=== PATIENT | female | born 2000 | race African-American/Black ===

== ENCOUNTER 2025-02-03 22:16 | Emergency (ER) | payer OTHER, SELFPAY ==
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
[2025-02-03 22:17] VITALS: BP 136/84; PULSE 78; RESP 16; TEMP 37; O2SAT 99
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
[2025-02-03] MEDS: CYCLOBENZAPRINE HCL 10 MG TABLET PO (23:09)
[2025-02-03] MEDS: ACETAMINOPHEN 500 MG TABLET 1000 MG PO (23:09)
--- OUTSIDE RECORDS SUMMARY | 2025-02-03 23:47 | XMS_ITS | Encounter Summary ---
Author Organization [facility] Address [address] [place] [id number] Care Team Providers Care Business Project Analyst Name Role Phone Krzysztof Merchant MD, [place] Primary Care Provider [phone] Encounter Details Date Type Department Care Team (Late st Contact Info) Description 09/19/2024 Orders Only [facility] - [address] [place] [address] [place] [id number] Tania Del Rosario APN [address] [place] [id number] BV (bacterial vaginosis) (Primary Dx) Social History Tobacco Use Types Packs/Day Years Used Date Smoking Tobacco: Never Smokeless Tobacco: Never Alcohol Use Standard Drinks/Week Comments Yes 0 (1 standard drink = 0.6 oz pur e alcohol) social AUDIT-C Answer Date Recorded Frequency of Alcohol Consumption Never 08/02/2019 Average Number of Drinks Not on file 019 Frequency of Binge Drinking Not on file 07/16 PHQ-2 Answer Date Recorded PHQ-2 SCORE 0 04/18/2024 Sex and Gender Information Value Date Recorded Sex Assigned at Not on file Gender Identity Female 06/10/2022 10:59 PM CDT Sexual Orientation Not on file documented as of this encounter Functional Status Functional Status Response Date of Assess ment Hearing Problems? No 09/18/2024 Vision Problems? No 09/18/2024 Difficulty walking? No 09/18/2024 Difficulty dressing or bathing? No 09/18/2024 Problems with daily activities? No 09/18/2024 Cognitive Status Response Date of Assessm ent Memory Problems? No 09/18/2024 documented as of this encounter Plan of Treatment Not on file documented as of this encounter Visit Diagnoses Diagnosis BV (bacterial vaginosis)- Primary Vaginitis and vulvovaginitis, unspecified documented in this encounter Additional Health Concerns Assessment Noted Time A fall risk assessment has been complete d for the patient 04/10/2019 2:00 PM CDT documented as of this encounter Care Teams Business Project Analyst Relationship Specialty Start Date End Date Rosalva Giron MD [address] [place] [address] PCP - General Internal Medicine 03/11/21 documented as of this encounter
--- OUTSIDE RECORDS SUMMARY | 2025-02-03 23:47 | XMS_ITS | Clinical Summary ---
Author Organization [employer] (Prior to 08/15/22) Address [address] [place] [address] Care Team Providers Care Postdoctoral Fellow Name Role Phone Unavailable Primary Care Provider Unavailabl e Social History Tobacco Use Types Packs/Day Years Used Date Never Assessed Sex Assigned at Date Recorded Not on file Plan of Treatment Health Maintenance Due Date Last Done Comments Annual Wellness Visit 2002 COVID-19 Vaccine (#1) 06/27/2003 Cervical Cancer Screening 2023 Influenza Vaccine 07/16/2024
--- OUTSIDE RECORDS SUMMARY | 2025-02-03 23:47 | XMS_ITS | Encounter Summary ---
Author Organization [facility] Address [address] [place] [address] Care Team Providers Care Regulatory Agency Director Name Role Phone Krzysztof Merchant MD, [place] Primary Care Provider [phone] Encounter Details Date Type Department Care Team (Late st Contact Info) Description 08/20/2023 Orders Only Family Medicine - Jessica Fernando, Britney Rodriguez [address] [place] [address] Jackie Hoawrd CMA Social History Tobacco Use Types Packs/Day Years [...] PHQ-2 Answer Date Recorded PHQ-2 SCORE 0 03/22/2023 Sex and Gender Information Value Date Recorded Sex Assigned at Not on file Gender Identity Female 06/10/2022 10:59 PM CDT Sexual Orientation Not on file documented as of this encounter Plan of Treatment Not on file documented as of this encounter Visit Diagnoses Not on filedocumented in this encounter Additional Health Concerns Assessment Noted Time A fall risk assessment has been complete d for the patient 04/10/2019 2:00 PM CDT documented as of this encounter Care Teams Regulatory Agency Director Relationship Specialty Start Date End Date Rosalva Giron MD [address] [place] [address] PCP - General Internal Medicine 03/11/21 documented as of this encounter
--- OUTSIDE RECORDS SUMMARY | 2025-02-03 23:47 | XMS_ITS | Clinical Summary ---
Author Organization [facility] Address [address] [place] [address] Care Team Providers Care Fuel Agent Name Role Phone Krzysztof Merchant MD, [place] Primary Care Provider [phone] Allergies No known active allergies Medications * This document contains information received from the source organization and may not represent a complete record from that organization. FLUoxetine HCl 20 MG Oral CapIndications: Depression Take 3 capsules (60 mg total) by mouth nightly. 30 capsule 04/20/2019 Active lamoTRIgine 25 MG Oral TabIndications: Depression Take 2 tablets (50 mg total) by mouth nightly. 30 tablet 04/28/2019 Active Prazosin HCl 1 MG Oral Cap Take 1 mg by mouth daily. 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 Saez at [facility] Immunizations Name Administration Dates Next Due Covid-19 Vaccine Moderna 100 mcg/0.5 ml 03/01/20 21 FLUZONE 6 months and older PFS 0.5 ml (48953) Meningococcal-Menactra 04/24/2019 TDAP 11/20/2016 Family History Medical History Relation Comments No Known Problems Father Cancer Maternal Grandmother Diabetes Maternal Grandmother No Known Problems Mother Hypertension Paternal Grandfather Stroke Paternal Grandfather Hypertension Paternal Grandmother Thyroid disease Paternal Grandmother Relation Status Comments Father Alive Maternal Grandmother Alive Mother Alive Paternal Grandfather Paternal Grandmother Social History Tobacco Use Types Packs/Day Years [...] PHQ-2 Answer Date Recorded PHQ-2 SCORE 0 06/26/2021 Comments No Sex and Gender Information Value Date Recorded Sex Assigned at Not on file 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 Gender Identity Not on file Sexual Orientation Not on file Last Filed Vital Signs Vital Sign Reading Time Taken Comments Blood Pressure 118/74 06/30/2021 4:40 PM CDT Pulse 82 06/26/2021 11:20 AM CDT Temperature 36.7 C (98 F) 03/11/2021 3:47 PM CDT Respiratory Rate 18 06/26/2021 11:2 0 AM CDT Oxygen Saturation 97% 03/11/2021 3:47 PM CDT Inhaled Oxygen Concentration - - Weight 110.1 kg (242 lb 12.8 oz) 2020 11:20 AM CDT Height 172.7 cm (5' 8 ) 06/26/2021 11:2 0 AM CDT Body Mass Index 36.92 06/26/2021 11:20 AM CDT Plan of Treatment Health Maintenance Due Date Last Done Comments Annual Physical 2002 Insurance [facility] P[facility] PPO BS PPO Advance Directives * Full Code (Latest Code Status on File) Date Activated Date Inactivated Comments 04/04/2019 4:26 AM Care Teams Fuel Agent Relationship Specialty Start Date End Date Rosalva Giron MD [address] [place] [address] PCP - General Internal Medicine 03/11/21
--- OUTSIDE RECORDS SUMMARY | 2025-02-03 23:47 | XMS_ITS | Referral Summary ---
Author Organization [facility] Address [address] [place] [address] Care Team Providers Care Paper Mill Superintendent Name Role Phone Krzysztof Merchant MD, [place] Primary Care Provider [phone] Allergies No known active allergies Medications * [...] features Overview (03/11/2021): Psychiatrist= Dr. Saez at 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 Gender Identity Not on file Sexual Orientation [...] 06/26/2021 11:20 AM CDT Plan of Treatment Not on file Insurance [facility] PPO [facility] PPO Member Subscriber Plan / Payer (Ef fective 2016-Present) Name:BIA MEEHAN Relation to Subscriber:Child Name:FRANKO MELCHOR Date of :1976 (Home) Address: [address] [place] [address] Payer ID:[id number] Type:PPO Address: [place] [id number] PPO Advance Directives * Full Code (Latest Code Status on File) Date Activated Date Inactivated Comments 04/04/2019 4:26 AM Care Teams Paper Mill Superintendent Relationship Specialty Start Date End Date Rosalva Giron MD [address] [place] [address] PCP - General Internal Medicine 03/11/21
--- OUTSIDE RECORDS SUMMARY | 2025-02-03 23:47 | XMS_ITS | Clinical Summary ---
Author Organization [facility] Address [address] [place] [address] Care Team Providers Care Government Relations Director Name Role Phone None, Provider MD Primary Care Provider Unavaila ble Allergies No known active allergies Medications ondansetron (ZOFRAN-ODT) 4 MG disintegrating tablet Take 1 tablet (4 mg total) by mouth every 8 (eight) hours as needed for Nausea. 20 tablet Active Social History Tobacco Use Types Packs/Day Years Used Date Smoking Tobacco: Never Smokeless Tobacco: Never Tobacco Cessation:Counseling Given: Not Answered Alcohol Use Standard Drinks/Week Comments Yes 0 (1 standard drink = 0.6 oz pur e alcohol) Comments No Sex and Gender Information Value Date Recorded Sex Assigned at Not on file Legal Sex Female 2:10 AM SUCCESSFACTORS CONSULTANT Gender Identity Not on file Sexual Orientation Not on file Last Filed Vital Signs Vital Sign Reading Time Taken Comments Blood Pressure 129/87 01/11/2024 5:12 AM SUCCESSFACTORS CONSULTANT Pulse 94 01/11/2024 5:12 AM SUCCESSFACTORS CONSULTANT Temperature 36.8 C (98.3 F) 01/11/2024 5:12 AM SUCCESSFACTORS CONSULTANT Respiratory Rate 18 01/11/2024 5:12 AM SUCCESSFACTORS CONSULTANT Oxygen Saturation 100% 01/11/2024 5:12 AM SUCCESSFACTORS CONSULTANT Inhaled Oxygen Concentration - - Weight 97.5 kg (215 lb) 01/11/2024 2:16 AM SUCCESSFACTORS CONSULTANT Height 172.7 cm (5' 8 ) 01/11/2024 2:16 AM SUCCESSFACTORS CONSULTANT Body Mass Index 32.69 01/11/2024 2:16 AM SUCCESSFACTORS CONSULTANT Plan of Treatment Health Maintenance Due Date Last Done Comments Cervical Cancer Screening Mumtaz azevedo Smear (Age 21 to 29) Every 3 Years 2002 Cervical Cancer Screening 2002 Annual Physical 2005 HPV Vaccines (1 - 3-dose series) 2017 Meningococcal B Vaccine (1 o f 2 - Standard) 2018 Hepatitis C 2020 Hepatitis B Vaccines (1 of 3 - 19+ 3-dose series) 2021 COVID-19 Vaccine (4 - 2023-2 5 season) 2024 04/20/2022, 03/27/2021, 03/01/2021 Influenza Adult (#1) 2024 10/03/2018 DTaP, Tdap and Td Vaccines ( 2 - Td or Tdap) 11/20/2026 11/20/2016 Meningococcal Vaccine Completed 04/24/2019 Pneumococcal Vaccine: Pediatrics (0 to 5 Years) and At-Risk Patients (6 to 64 Years) Aged Out No longer eligible b ased on patient's age to complete this topic RSV Immunizations Under 20 Months Aged Out No longer eligible b ased on patient's age to complete this topic Insurance Care Teams Government Relations Director Relationship Specialty Start Date End Date None, Provider, MD PCP - General UNKNOWN PHYSICIAN SPECIALTY 01/11/24
--- OUTSIDE RECORDS SUMMARY | 2025-02-03 23:47 | XMS_ITS | Encounter Summary ---
Author Organization [facility] Address [address] [place] [address] Care Team Providers Care First Coat Sander Name Role Phone Krzysztof Merchant MD, [place] Primary Care Provider [phone] Encounter Details Date Type Department Care Team (Late st Contact Info) Description 03/20/2024 Orders Only [facility] [employer] - Alfie Toro [place] [address] [place] [address] Neisha Williamson PA-C Yeast vaginitis (Primary Dx) Social History Tobacco Use Types [...] as of this encounter Visit Diagnoses Diagnosis Yeast vaginitis- Primary Candidiasis of vulva and vagina documented in this encounter Additional Health Concerns Assessment Noted Time A fall risk assessment has been complete d for the patient 04/10/2019 2:00 PM CDT documented as of this encounter Care Teams First Coat Sander Relationship Specialty Start Date End Date Rosalva Giron MD [address] [place] [address] PCP - General Internal Medicine 03/11/21 documented as of this encounter
--- OUTSIDE RECORDS SUMMARY | 2025-02-03 23:47 | XMS_ITS | Clinical Summary ---
Author Organization [facility] Address [address] [place] [address] Care Team Providers Care Travel Director Name Role Phone Krzysztof Merchant MD, Rosalva Primary Care Provider [phone] Allergies No known active allergies Medications Medication Sig Dispensed Refills Start Date End Date Status Phentermine HCl 37.5 MG Oral CapIndications:Clas s 3 obesity (HCC) Take 1 capsule (37.5 mg total) by mouth every morning. 30 capsule 2 11/22/2024 Active Drospirenone-Ethiny l Estradiol 3-0.02 MG Oral Tab Take 1 tablet by mouth daily. 84 tablet 3 11/24/2024 02/17/2026 Active Active Problems Problem Noted Date Diagnosed Date Major depressive disorder 04/04/2019 Obesity 04/04/2019 Attention deficit hyperactiv ity disorder (ADHD), predominantly inattentive type 12/26/2018 PTSD (post-traumatic stress disorder) 12/26/2018 Constipation 11/20/2016 Resolved Problems Problem Noted Date Diagnosed Date Resolved Date Anorexia nervosa, binge-eating purging type 04/04/2019 05/20/2023 Drug overdose, intentional 04/04/2019 0 05/20/2023 Deliberate self-cutting 04/04/2019/04/2023 Suicidal ideation 06/14/2018 07/04/2024 Folliculitis 10/29/2017 07/04/2024 Major depressive disorder, r ecurrent severe without psychotic features 07/04/2024 Overview (03/11/2021): Psychiatrist= Dr. Saez at [facility] Encounters Date Type Department Care Team Description 11/24/2024 Orders Only OB-PROCESSING ANALYST - [address] [facility] [address] [place] [id number] Tania Del Rosario APN 11/22/2024 1:30 PM PLANT PRODUCTION MANAGER Telemedicine Internal Medicine - Mily Fernando, Alli [address] [place] [address] Rosalva iGron MD Class 3 obesity from Last 3 Months Immunizations Name Administration Dates Next Due Covid-19 Vaccine Moderna 100 mcg/0.5 ml 03/01/20 21 FLUZONE 6 months and older PFS 0.5 ml (05087) Meningococcal-Menactra 04/24/2019 TDAP 11/20/2016 Family History Medical History Relation Comments No Known Problems Father Diabetes Maternal Grandmother No Known Problems Mother Hypertension Paternal Grandfather Stroke Paternal Grandfather Colon Cancer Paternal Grandmother Diabetes Paternal Grandmother Hypertension Paternal Grandmother Thyroid disease Paternal Grandmother [...] PM CDT Sexual Orientation Not on file Last Filed Vital Signs Vital Sign Reading Time Taken Comments Blood Pressure 114/72 09/18/2024 10:37 AM PLANT PRODUCTION MANAGER Pulse 98 09/18/2024 10:37 AM PLANT PRODUCTION MANAGER Temperature 36.3 C (97.3 F) 08/07/2024 10:16 AM CDT Respiratory Rate 18 09/18/2024 10:37 AM PLANT PRODUCTION MANAGER Oxygen Saturation 98% 09/18/2024 10:37 AM PLANT PRODUCTION MANAGER Inhaled Oxygen Concentration - - Weight 92.5 kg (204 lb) 11/22/2024 1:53 PM PLANT PRODUCTION MANAGER Height 172.7 cm (5' 8 ) 09/18/2024 10:37 AM PLANT PRODUCTION MANAGER Body Mass Index 31.02 09/18/2024 10:37 AM PLANT PRODUCTION MANAGER Plan of Treatment Health Maintenance Due Date Last Done Comments HPV Vaccines (1 - 3-dose series) 2017 Meningococcal B Vaccine (1 of 2 - Standard) 2018 COVID-19 Vaccine ( season) 2024 04/20/2022, 03/27/2021, 03/01/2021 Influenza Vaccine (#1) 2024 10/03/2018 Annual Physical 01/13/2025 01/14/2024, 10/16, 03/22/2023, Additional history exists Annual Depression Screen 04/18/2025 04/18/2024 Chlamydia Screening 09/18/2025 09/18/2024, 03/17/2024, 02/18/2024, Additional history exists Pap Smear,3 Years 01/13/2027 01/14/2024 Pneumococcal Vaccine: to 49yrs Aged Out No longer eligible based on patient's age to complete this topic Procedures Procedure Name Priority Date/Time Associated Diagnosis Comments CHLAMYDIA/GONOCOCCU S BY PCR Routine 09/18/2024 11:10 AM PLANT PRODUCTION MANAGER Vaginal itching Vaginal odor Screen for STD (sexually transmitted disease) PAP AND HPV WITH REFLEX TO HPV GENOTYPES 16 AND 18,45, ONLY IF PAP NEG,THINPREP Routine 01/14/2024 2:14 PM PLANT PRODUCTION MANAGER Cervical cancer screening Encounter for gynecological examination with abnormal finding PERIODIC PREVENTIVE MED EST PATIENT 18-39 YRS Routine 03/22/2023 2:55 PM CDT Physical exam Family history of diabetes mellitus (DM) Class 3 severe obesity due to excess calories with body mass index (BMI) of 40.0 to 44.9 in adult, unspecified whether serious comorbidity present (HCC) Major depressive disorder, recurrent severe without psychotic features (HCC) Laboratory exam ordered as part of routine general medical examination from Last 3 Months or Most Recently Relevant to Health Maintenance Results * CHLAMYDIA/GONOCOCCUS BY PCR (09/18/2024 11:10 AM PLANT PRODUCTION MANAGER) Chlamydia by PCR NOT DETECTED Not Detected 09/20/2024 8:27 AM PLANT PRODUCTION MANAGER [facility] Gonorrhoeae by PCR NOT DETECTED Not Detected 09/20/2024 8:27 AM PLANT PRODUCTION MANAGER [facility] Other SPECIMEN FROM CERVIX OR VAGINA / Unknown 09/18/2024 11:10 AM PLANT PRODUCTION MANAGER 09/18/2024 11:10 AM PLANT PRODUCTION MANAGER Tania Del Rosario APN MICROBIOLOGY ORDERAB LES [facility] [address] [phone] * THINPREP PAP AND HPV, RFX TO HPV GENOTYPES 16, 18/45 (01/14/2024 2:14 PM PLANT PRODUCTION MANAGER) DIAGNOSIS: Comment 01/18/2024 7:09 PM PLANT PRODUCTION MANAGER [facility] (BEAKER) Comment:NEGATIVE FOR INTRAEP ITHELIAL LESION OR MALIGNANCY. Specimen adequacy: Comment 2023 7:09 PM PLANT PRODUCTION MANAGER [facility] (BE[employer]starter) Comment: Satisfactory for evaluation. Endocervical and/or squamous metaplastic cells (endocervical component) are present. Clinician provided ICD10: Comment 01/18/2024 7:09 PM PLANT PRODUCTION MANAGER [facility] (BEAKER) Comment: Z12.4 Z01.411 Performed by: Comment 01/18/2024 7:09 PM PLANT PRODUCTION MANAGER [facility] (BEAKER) Comment:Aga Griggs, [employer] hnologist (ASCP) . . 01/18/2024 7:09 PM PLANT PRODUCTION MANAGER [facility] (BEAKER) Note: Comment 01/18/2024 7:09 PM PLANT PRODUCTION MANAGER [facility] (BEAKER) Comment: The Pap smear is a screening test designed to aid in the detection of premalignant and malignant conditions of the uterine cervix. It is not a diagnostic procedure and should not be used as the sole means of detecting cervical cancer. Both false-positive and false-negative reports do occur. Test Methodology: Comment 024 7:09 PM PLANT PRODUCTION MANAGER [facility] (NAIF) Comment: This liquid based ThinPrep(R) pap test was screened with the use of an image guided system. HPV Aptima Negative Negative 01/18/2024 7:09 PM PLANT PRODUCTION MANAGER [facility] (NAIF) Comment: This nucleic acid amplification test detects fourteen high-risk HPV types (16,18,31,33,35,39,45,51,52,56,58,59,66,68) without differentiation. [facility] HPV GENOTYPE REFLEX () Comment 01/18/2024 7:09 PM PLANT PRODUCTION MANAGER [facility] (NAIF) Comment:Criteria not met, HP V Genotype not performed. Other CERVICAL SWAB / Unknown 01/14/2024 2:14 PM PLANT PRODUCTION MANAGER 01/14/2024 2:14 PM PLANT PRODUCTION MANAGER Narrative [facility] (NAIF) - 01/18/2024 7:09 PM PLANT PRODUCTION MANAGER [facility] [address] [place] [id number] Mechanical Oxidizer: Mahesh Gonzalez MD, Phone: [phone] Performed at: - [facility] [id number] Mechanical Oxidizer: Renetta Samayoa MD, Phone: [phone] Performed at: - [facility] [id number] Mechanical Oxidizer: Renetta Samayoa MD, Phone: [phone] Specimen Comment: Source.............Cervix;Endocervix Specimen Comment: No. of containers..01 ThinPrep Vial Silke Hendricks APN PATHOLOGY/CYTOLOGY O RDERABLES [facility]) from Last 3 Months or Most Recently Relevant to Health Maintenance Advance Directives * Full Code (Latest Code Status on File) Date Activated Date Inactivated Comments 04/04/2019 4:26 AM Care Teams Travel Director Relationship Specialty Start Date End Date Rosalva Giron MD [facility] [place] [address] PCP - General Internal Medicine 03/11/21
--- NOTE | 2025-02-04 02:42 | PC.NURSE ---
Pt seen by staff ambulating with visitor out the doors to parking lot.
== END 2025-02-04 02:42 | disposition left against medical advice (07) ==
PROVIDERS: Emergency Provider Physician Assistant
DX: S69.91XA Unspecified injury of right wrist, hand and finger(s), initial encounter (principal); H92.01 Otalgia, right ear; R68.84 Jaw pain; V43.52XA Car driver injured in collision with other type car in traffic accident, initial encounter
CPT/HCPCS: 70450; 70486; 73110; 99284; A9270